=== PATIENT | male | born 1970 | race Caucasian/White ===

== ENCOUNTER → 2016-06-03 17:52 | Emergency (ER) | payer OTHER ==
[~2016-06-03 17:52] MED LIST: BACTRIM DS TABL1 TA1 PO; CIPRO PO; DICLOFENAC PO; EC-NAPROSYN500 MG PO; FAMOTIDINE PO; FLEXERIL PO; FLEXERIL10 MG PO; GLUCOPHAGE500 MG PO; GLUCOTROL XL PO; IBUPROFEN PO; IBUPROFEN800 MG PO; KETOPROFEN PO; LORTAB 5/500 TA1 TA1 PO; LORTAB 7.5-5001 TAB PO; METFORMIN HCL500 M1 PO; NAPROXEN PO; NORFLEX100 MG PO; ORUDIS75 M1 DOB; PEN-VEE K PO; PERCOCET5/325 PO; PREDNISONE50 MG PO; ULTRAM PO; VICODIN 5/1 TAB 5/50 PO; VICODIN 5/500 T1 TAB PO; VOLTAREN75 MG PO; ZITHROMAX PO
== END | disposition left against medical advice (07) ==
LOC: CED 17:52
DX: Z53.21 Procedure and treatment not carried out due to patient leaving prior to being seen by health care provider (principal)

== ENCOUNTER 2016-06-04 16:00 | Emergency (ER) | payer OTHER ==
--- NOTE | ~2016-06-04 | CR169 ---
[facility]. [facility] A Service of [facility] RADIOLOGY TEXT RESULTS PATIENT: DEEPA GAMEZ LOCATION: SED : 66 UNIT #: [id number] AGE: [address]: Mary Anne Tidwell MD SEX: M ORDER DR: [id number] [place] [id number] E MR#: [id number] Acc #: [id number] NAME: DEEPA GAMEZ : 1970 SEX: M STUDY DATE/TIME: 06/04/2016 16:03 UNIT: SED ROOM: STUDY DESCRIPTION: CR Knee 2 Views Lt Attending Physician: Mary Anne Tidwell M.D. Ordering Physician: Mary Anne Tidwell M.D. Primary Care Physician: [facility] MEDICAL IMAGING REPORT This report is preliminary unless electronic signature is present. EXAM Left knee 2 views HISTORY Knee pain after twisting injury yesterday. FINDINGS 2 views left knee demonstrate normal bone alignment. Moderate degenerative changes in the patellofemoral joint. Mild degenerative changes in the medial and lateral compartments. Probable minimal suprapatellar effusion. Arterial calcifications. IMPRESSION 1. No fracture. 2. Satisfactory bone alignment. 3. Degenerative changes in the knee primarily in the patellofemoral joint. 4. Probable minimal suprapatellar effusion. Dictated by... Wojciech Altamirano M.D. THIS IS AN ELECTRONICALLY VERIFIED REPORT Wojciech Altamirano M.D. at 06/05/2016 10:46 PM DFL/tea TD: 06/05/2016 19:53 JOB #: [id number] MEDICAL IMAGING REPORT
== END 2016-06-04 17:15 | disposition home or self-care (01) ==
LOC: SED 16:00
DX: S86.912A Strain of unspecified muscle(s) and tendon(s) at lower leg level, left leg, initial encounter (principal); E11.9 Type 2 diabetes mellitus without complications; W17.89XA Other fall from one level to another, initial encounter; Y92.009 Unspecified place in unspecified non-institutional (private) residence as the place of occurrence of the external cause
CPT/HCPCS: 73560; 99283